=== PATIENT | male | born 1990 | race Caucasian/White ===

== ENCOUNTER 2017-04-26 17:02 | Emergency (ER) | payer SELFPAY ==
[~2017-04-26] VITALS: Ht 172.7 cm; Wt 81.6 kg
[2017-04-26 17:05] VITALS: BP 126/80
[2017-04-26] MEDS ORDERED: KETOROLAC 30 MG/1 ML IM ONE (17:30)
[2017-04-26] MEDS ORDERED: KETOROLAC 30 MG/1 ML ONE (18:01)
== END 2017-04-26 19:19 | disposition home or self-care (01) ==
LOC: ED 18:45
DX: S39.012A Strain of muscle, fascia and tendon of lower back, initial encounter (principal); G40.909 Epilepsy, unspecified, not intractable, without status epilepticus; X58.XXXA Exposure to other specified factors, initial encounter; Y93.89 Activity, other specified; Y92.89 Other specified places as the place of occurrence of the external cause; Y99.8 Other external cause status
CPT/HCPCS: 72110; 96372; 99284; J1885

== ENCOUNTER 2018-02-01 09:50 | Emergency (ER) | payer MEDICAID, MEDICARE, OTHER ==
[~2018-02-01] VITALS: Ht 171.4 cm; Wt 79.7 kg
[2018-02-01 11:21] LABS: BASOPHILS # (AUTO) 0.03 x10^3/uL (0-0.1); BASOPHILS % (AUTO) 1 % (0-1); EOSINOPHILS # (AUTO) 0.16 x10^3/uL (0-0.4); EOSINOPHILS % (AUTO) 3 % (1-7); LYMPHOCYTES # (AUTO) 1.48 x10^3/uL (1-3.4); LYMPHOCYTES % (AUTO) 31 % (22-44); MD NO; MEAN CORPUSCULAR HGB CONC 34.7 g/dL (33.2-36.2); MEAN CORPUSCULAR VOLUME 92.3 fL (81-97); MEAN PLATELET VOLUME 9.3 fL (7.4-10.4); MONOCYTES # (AUTO) 0.52 x10^3/uL (0.2-0.8); MONOCYTES % (AUTO) 11 % (2-9); NEUTROPHILS # (AUTO) 2.61 x10^3/uL (1.8-6.8); NEUTROPHILS % (AUTO) 54 % (42-75); PLATELET COUNT 244 x10^3/uL (130-400); RED BLOOD COUNT 4.53 x10^6/uL (4.38-5.82)
[2018-02-01 11:30] LABS: ANION GAP 5 mmol/L (5-15); CALCIUM 8.4 mg/dL (8.5-10.1); CHLORIDE 107 mmol/L (98-107); CREATININE 1.02 mg/dL (0.7-1.3)
[2018-02-01 12:53] VITALS: BP 106/51
== END 2018-02-01 12:57 | disposition home or self-care (01) ==
LOC: ED 10:59
DX: R55 Syncope and collapse (principal); E86.0 Dehydration; G40.909 Epilepsy, unspecified, not intractable, without status epilepticus
CPT/HCPCS: 36415; 80048; 82040; 85025; 93005; 99285

== ENCOUNTER 2018-07-21 15:48 | Emergency (ER) | payer SELFPAY ==
[~2018-07-21] VITALS: Ht 172.7 cm; Wt 73.4 kg
[2018-07-21 16:45] LABS: BASOPHILS # (AUTO) 0.03 x10^3/uL (0-0.1); BASOPHILS % (AUTO) 0 % (0-1); EOSINOPHILS # (AUTO) 0.15 x10^3/uL (0-0.4); EOSINOPHILS % (AUTO) 2 % (1-7); LYMPHOCYTES # (AUTO) 1.65 x10^3/uL (1-3.4); LYMPHOCYTES % (AUTO) 19 % (22-44); MD NO; MEAN CORPUSCULAR HEMOGLOBIN 31.2 pg (27.5-34.5); MEAN CORPUSCULAR HGB CONC 33.6 g/dL (33.2-36.2); MEAN CORPUSCULAR VOLUME 92.8 fL (81-97); MEAN PLATELET VOLUME 9.6 fL (7.4-10.4); MONOCYTES % (AUTO) 8 % (2-9); NEUTROPHILS # (AUTO) 6.29 x10^3/uL (1.8-6.8); NEUTROPHILS % (AUTO) 71 % (42-75); PLATELET COUNT 270 x10^3/uL (130-400); RED CELL DISTRIBUTION WIDTH 13.4 % (9.4-14.8)
[2018-07-21 16:55] LABS: ALANINE AMINOTRANSFERASE 25 U/L (12-78); ALBUMIN 3.8 g/dL (3.4-5.0); ANION GAP 7 mmol/L (5-15); CALCIUM 8.6 mg/dL (8.5-10.1); CHLORIDE 110 mmol/L (98-107); CREATININE 1.09 mg/dL (0.7-1.3)
[2018-07-21 16:57] LABS: ALKALINE PHOSPHATASE 99 U/L (45-117); BILIRUBIN,TOTAL 0.3 mg/dL (0.2-1.0); TOTAL PROTEIN 7.3 g/dL (6.4-8.2)
--- NOTE | 2018-07-21 18:16 | NUR ---
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
[2018-07-21] MEDS ORDERED: HYDROmorphone 1 MG/ML, 1ML INJ IM ONE (18:30)
[2018-07-21] MEDS ORDERED: MAALOX/HYOSCYAMINE/LIDOCAINE 45 ML BTL PO ONE (18:30)
[2018-07-21] MEDS ORDERED: ONDANSETRON ODT 4 MG PO ONE (18:30)
[2018-07-21] MEDS ORDERED: ONDANSETRON 2MG/ML, 2ML ONE (18:43)
[2018-07-21] MEDS ORDERED: MAALOX/HYOSCYAMINE/LIDOCAINE 45 ML BTL ONE (18:44)
[2018-07-21] MEDS ORDERED: MORPHINE SULFATE 4 MG/ML, 1ML ONE ×2 (18:44→19:59)
[2018-07-21] MEDS: MORPHINE SULFATE 4 MG/ML, 1ML IVPush PRN ×2 (18:47→20:01)
[2018-07-21] MEDS ORDERED: ONDANSETRON 2MG/ML, 2ML IVPush ONE (19:00)
[2018-07-21] MEDS ORDERED: OMNIPAQUE 350 MG/ML, 100ML BOTTLE ONE (19:02)
--- NOTE | 2018-07-21 19:02 | NUR ---
report received from rhina graves.
--- NOTE | 2018-07-21 19:28 | NUR ---
PT BACK TO ROOM FROM CT NOW.
--- NOTE | 2018-07-21 20:05 | NUR ---
PT MEDICATED PER EMAR FOR PAIN. PT'S PAIN LEVEL IS 8/10 AT THIS TIME.
[2018-07-21 20:53] VITALS: BP 102/62
--- NOTE | 2018-07-21 21:00 | NUR ---
PT'S PAIN LEVEL IS 5/10 AT THIS TIME.
--- NOTE | 2018-07-21 21:42 | NUR ---
PT GIVEN DC INSTRUCTIONS AND SCRIPTS. PT EDUCATED REGARDING DC MEDICATIONS. PT'S AOX4. RESPS EVEN AND UNLABORED. PT AMB TO DC WITH STEADY GAIT. NO ACUTE DISTRESS AT DC.
== END 2018-07-21 21:43 | disposition home or self-care (01) ==
LOC: ED 18:23
DX: R10.11 Right upper quadrant pain (principal); R10.13 Epigastric pain; F17.200 Nicotine dependence, unspecified, uncomplicated; G40.909 Epilepsy, unspecified, not intractable, without status epilepticus
CPT/HCPCS: 36415; 74177; 76700; 80053; 83690; 85025; 96374; 96375; 96376; 99284; J2405; Q9967

== ENCOUNTER 2019-04-05 20:18 | Emergency (ER) | payer SELFPAY ==
[~2019-04-05] VITALS: Ht 172.7 cm; Wt 86.6 kg
--- NOTE | 2019-04-05 20:42 | NUR ---
THIS IS A 28Y M THAT COMES IN TODAY W/ C/O COUGH, BACK PAIN AND PAIN IN HIS LUNGS WITH BREATHING. PT STS HE WAS CLEAN FOR 3-4MONTHS FROM METH AND RELAPSED LAST NIGHT. PT DENIES SMOKING METH BUT STS HE INJECTED IT. PT IS VERY RESTLESS, CONTINIOUSLY MOVING LIMBS AND CLEARING THROAT. PT FAMILY AT BEDSIDE. CALL LIGHT IN REACH. PT PLACED IN HOSPITAL GOWN AND ON ALL MONITORING. SG MCKEON.
--- NOTE | 2019-04-05 20:48 | NUR ---
PT TO XRAY
[2019-04-05] MEDS ORDERED: SODIUM CHLORIDE FLUSH 10ML SYR IVF ONE (21:00)
[2019-04-05] MEDS ORDERED: LORazepam 2 MG/ML, 1ML IVPush ONE (21:00)
--- NOTE | 2019-04-05 21:08 | NUR ---
LAB AT BEDSIDE
[2019-04-05] MEDS ORDERED: DEXAMETHASONE 4 MG/ML, 5ML ONE (21:14)
[2019-04-05] MEDS ORDERED: LORazepam 2 MG/ML, 1ML ONE (21:16)
--- NOTE | 2019-04-05 21:21 | NUR ---
PT MEDICATED PER [facility]Y VSS. NADN FAMILY REMAINS AT BEDSIDE.
[2019-04-05 21:29] VITALS: BP 114/51
[2019-04-05] MEDS ORDERED: DEXAMETHASONE 4 MG/ML, 1ML IV ONE (21:30)
[2019-04-05 21:41] LABS: BASOPHILS # (AUTO) 0.03 x10^3/uL (0-0.1); BASOPHILS % (AUTO) 0 % (0-1); EOSINOPHILS # (AUTO) 0.19 x10^3/uL (0-0.4); EOSINOPHILS % (AUTO) 3 % (1-7); LYMPHOCYTES # (AUTO) 1.88 x10^3/uL (1-3.4); LYMPHOCYTES % (AUTO) 26 % (22-44); MD NO; MEAN CORPUSCULAR HEMOGLOBIN 31.1 pg (27.5-34.5); MEAN CORPUSCULAR HGB CONC 33.6 g/dL (33.2-36.2); MEAN CORPUSCULAR VOLUME 92.6 fL (81-97); MEAN PLATELET VOLUME 9.7 fL (7.4-10.4); MONOCYTES # (AUTO) 0.75 x10^3/uL (0.2-0.8); MONOCYTES % (AUTO) 10 % (2-9); NEUTROPHILS # (AUTO) 4.34 x10^3/uL (1.8-6.8); NEUTROPHILS % (AUTO) 60 % (42-75); PLATELET COUNT 270 x10^3/uL (130-400); RED BLOOD COUNT 4.36 x10^6/uL (4.38-5.82); RED CELL DISTRIBUTION WIDTH 12.9 % (9.4-14.8)
[2019-04-05 21:54] LABS: ALBUMIN 3.8 g/dL (3.4-5.0); ANION GAP 6 mmol/L (5-15); CALCIUM 8.8 mg/dL (8.5-10.1); CHLORIDE 104 mmol/L (98-107); CREATININE 1.23 mg/dL (0.7-1.3)
[2019-04-05 21:58] LABS: TROPONIN I < 0.015 ng/mL (0.000-0.045)
[2019-04-05] MEDS ORDERED: POTASSIUM CHLORIDE 20 MEQ TAB.ER.PRT PO ONE (22:00)
[2019-04-05] MEDS ORDERED: POTASSIUM CHLORIDE 20 MEQ TAB.ER.PRT ONE (22:09)
--- NOTE | 2019-04-05 22:19 | NUR ---
Patient/Caregiver given discharge instructions and they have confirmed that they understand the instructions. Patient ambulatory with steady gait. IV D/C TIP INTACT PRIOR TO LEAVING FACILITY
== END 2019-04-05 22:22 | disposition home or self-care (01) ==
LOC: ED 22:16
DX: R13.11 Dysphagia, oral phase (principal); R07.89 Other chest pain; E87.6 Hypokalemia; G40.909 Epilepsy, unspecified, not intractable, without status epilepticus
CPT/HCPCS: 36415; 70360; 71045; 80048; 82040; 84484; 85025; 93005; 96374; 96375; 99284; J1100; J2060

== ENCOUNTER 2020-11-29 22:19 | Emergency (ER) | payer OTHER ==
[~2020-11-29] VITALS: Ht 172.7 cm; Wt 94.6 kg
[2020-11-29] MEDS ORDERED: MAALOX/HYOSCYAMINE/LIDOCAINE 45 ML BTL PO ONE (22:30)
--- NOTE | 2020-11-29 23:10 | NUR ---
PT C/O OF TROUBLED BREATHING. PT STATES HE FAINTS WHILE HE EATS BECAUSE HE CANNOT BREATHE. REPORTS FOOD GETTING STUFF IN [place] FOR LAST FEW YEARS. ATTACHED TO MONITORS, VSS, EKG DONE IN TRIAGE. BED IN LOW, CHANGED INTO GOWN, RAILS ENGAGED, CALL LIGHT ON LAP. Addendum: 11/29/20 at 2314 by [email or web address] PT REPORTS N/V AND HX OF SIEFRANCESRES
[2020-11-29 23:14] LABS: ALANINE AMINOTRANSFERASE 30 U/L (12-78); ALBUMIN 3.5 g/dL (3.4-5.0); ANION GAP 6 mmol/L (5-15); CALCIUM 8.3 mg/dL (8.5-10.1); CHLORIDE 106 mmol/L (98-107); CREATININE 1.14 mg/dL (0.7-1.3)
[2020-11-29] MEDS ORDERED: MAALOX/HYOSCYAMINE/LIDOCAINE 45 ML BTL ONE (23:15)
[2020-11-29 23:19] LABS: ALKALINE PHOSPHATASE 93 U/L (45-117); BILIRUBIN,TOTAL 0.3 mg/dL (0.2-1.0); TOTAL PROTEIN 7.2 g/dL (6.4-8.2); TROPONIN I < 0.015 ng/mL (0.000-0.045)
[2020-11-29] MEDS ORDERED: OMEPRAZOLE 20 MG CAPSULE.DR ONE (23:25)
[2020-11-29 23:29] VITALS: BP 125/66
[2020-11-29] MEDS ORDERED: OMEPRAZOLE 20 MG CAPSULE.DR PO ONE (23:30)
[2020-11-29 23:34] LABS: BASOPHILS % (AUTO) 1 % (0-1); EOSINOPHILS % (AUTO) 4 % (1-7); LYMPHOCYTES % (AUTO) 35 % (22-44); MEAN CORPUSCULAR HEMOGLOBIN 31.6 pg (27.5-34.5); MEAN CORPUSCULAR HGB CONC 34.6 g/dL (33.2-36.2); MONOCYTES % (AUTO) 9 % (2-9); NEUTROPHILS % (AUTO) 51 % (42-75); PLATELET COUNT 244 x10^3/uL (130-400); RED BLOOD COUNT 4.23 x10^6/uL (4.38-5.82); RED CELL DISTRIBUTION WIDTH 13.7 % (9.4-14.8)
--- NOTE | 2020-11-30 00:12 | NUR ---
Patient/Caregiver given discharge instructions and they have confirmed that they understand the instructions. Patient ambulatory with steady gait. NAD, all questions answered appropriately, denies additional needs at this time. No personal belongings left in room after discharge.
== END 2020-11-30 00:42 | disposition home or self-care (01) ==
LOC: ED 22:30
DX: K21.00 Gastro-esophageal reflux disease with esophagitis, without bleeding (principal); R55 Syncope and collapse; R07.89 Other chest pain
CPT/HCPCS: 36415; 71045; 80053; 83690; 84484; 85025; 93005; 99285